=== PATIENT | female | born 1990 | race Caucasian/White ===

== ENCOUNTER 2018-09-15 21:26 | Emergency (ER) | payer BC, SELFPAY ==
[2018-09-15 21:28] VITALS: BP 122/77; PULSE 81; RESP 18; TEMP 36.7; O2SAT 96; BMI 24.2
--- NOTE | 2018-09-15 22:07 | ED.DCSUM_ITS ---
- ER Visit Summary Date of Service: 09/15/18 Chief Complaint: Cat scratch to History of Present Illness: The patient is a 28 F who is otherwise healthy presents to the emergency department after her cat scratched her on her right eyelid. Patient was contacts. States the cat got scared and scratched her face quickly. She is to close her eyes, and was scratched in her eyelid. She denies any visual change. She is unsure of her last tetanus shot. Patient is otherwise healthy. Physical Examination: Exam is relatively unremarkable. The patient is a 2 cm partial-thickness laceration in the right outer eyelid. It does not involve the tarsal plate. It does not gap open. It is well approximated. Pupils equal round reactive. There is no evidence of other trauma. Test Results: [] Emergency Department Course and Treatment: Patient's tetanus was updated. Slit- lamp examination was performed. There was no evidence of corneal abrasion or ulceration. Her wound is partial-thickness and is well approximated. I do feel that this will heal very well by secondary intention. I do have concern that if I did close it, there is a high risk of infection as this was a cat scratch. I explained this to the patient she is comfortable with this plan of care. She will be placed on prophylactic Augmentin for the next 5 days. She was counseled on local wound care and reasons to return. She will be discharged home. Treatment Plan: [] Disposition: Discharge Impression: 1. Cat scratch right eyelid This note was generated with [employer] dictation software. It may contain incorrect words, spelling, and punctuation that were not noted in review of the chart prior to signing ED Disposition - Plan for ED Patient: Instructions: Cat Bite Prescriptions: Amox/Clavulanate Tablet [Augmentin Tablet] 875 mg PO Q12H #10 tab Prescription Printed Fluconazole [Diflucan] 150 mg PO X1 #1 tab Prescription Printed Referrals: NOT,DEFINED [Primary Care Provider] -
[2018-09-15] MEDS: Amox/Clavulanate 875 MG Tablet PO (22:09)
[2018-09-15] MEDS: Diphth,Pertuss(Acell),Tet Vac 0.5 ML Vial IM (22:10)
[2018-09-15 22:39] VITALS: RESP 16
== END 2018-09-15 22:39 | disposition home or self-care (01) ==
LOC: ED 22:34
PROVIDERS: Emergency Provider Emergency Medicine
DX: S00.211A Abrasion of right eyelid and periocular area, initial encounter (principal); W55.03XA Scratched by cat, initial encounter; Y93.9 Activity, unspecified; Y92.9 Unspecified place or not applicable
CPT/HCPCS: 90715; 99282; A4216

== ENCOUNTER → 2018-11-25 | Outpatient (CLI) | payer BC, SELFPAY ==
[2018-11-30 12:24] LABS: HPV Reflexed? NOT INDICATED
== END | disposition home or self-care (01) ==
LOC: LABSPEC 15:49
PROVIDERS: Visit Provider Obstetrics & Gynecology
DX: Z12.4 Encounter for screening for malignant neoplasm of cervix (principal)
CPT/HCPCS: 87624; 88175; G0145

== ENCOUNTER 2019-09-28 10:32 | Outpatient (CLI) | payer SELFPAY ==
[2019-09-28 10:44] VITALS: BP 123/58; PULSE 81; TEMP 37.2
[2019-09-28 11:01] VITALS: BMI 28.5
--- NOTE | 2019-09-28 14:05 | OB.TRI.HP_ITS ---
- Problem List (1) tachycardia Status: Acute History of Present Illness Date of Service: 09/28/19 Was patient seen by the physician?: Yes Reason For Visit: TACHYCARDIA Date of Service: 09/28/19 Final COLIN: 11/09/19 Final COLIN Source: US <20 weeks Gestational age: 34 Weeks and 0 Days History of Present Illness: tachycardia in OB office today Allergies ethinyl estradiol [From Seasonale (91)] Allergy (Verified 09/15/18 21:30) Other levonorgestrel [From Seasonale (91)] Allergy (Verified 09/15/18 21:30) Other Review of Systems Constitutional: Denies: Chills, Fever, Weight Change HEENT: Denies: Head Aches, Sinus Congestion, Sinus Drainage Cardiovascular: Denies: Chest Pain, Palpitations Respiratory: Denies: Cough, Shortness of breath at rest, Sputum production Gastrointestinal: Denies: Abdominal Pain, Nausea, Vomiting Genitourinary: Denies: Dysuria Musculoskeletal: Denies: Joint Pain, Joint Tenderness Skin: Denies: Rash, Wounds Neurological: Denies: Numbness, Tingling, Focal weakness Psychiatric: Denies: Anxiety, Depression, Homicidal Ideations, Suicidal Ideations Hematologic/ Lymphatic: Denies: Easy Bruising, Easy Bleeding Physical Exam Vitals: Vital Signs Temp Pulse BP 99.0 F 81 123/58 H 09/28/19 10:44 09/28/19 10:44 09/28/19 10:44 General: Alert, Oriented x3, No apparent distress HEENT: Atraumatic, Normocephalic. Negative for: Thyromegaly, Lymphadenopathy Cardiovascular: Regular rate, Regular Rhythm Lungs: Clear to auscultation Abdomen: Bowel Sounds Present, Gravid Neurological: Deep Tendon Reflexes 2+/4 and Symmetrical, Neuro grossly intact INSTRUMENTAL MUSICIAN: Normal external genitalia. Negative for: Vulvar lesions NST - FHR Rate Baby A Baseline: 135 Variability:: Moderate Accelerations:: 15 x 15 Decelerations:: None NST Reactive:: Yes FHR Category:: Category I Uterine Activity:: quiet Impression/Plan A/P: A/P: at 34 weeks gestation sent to triage for tachycardia in the OB office Denies Nicotine or drug use Admits to having a big cup of coffee right before her appointment today Over two hours of observation NST remains Category I with FHR baseline of 135, maximum 150s Educated on eliminating caffeine and affects on heart rate To follow up in OB office as scheduled
== END 2019-09-28 13:15 | disposition home or self-care (01) ==
LOC: WPOUT 10:32 → WP 10:33
PROVIDERS: Referring Provider Obstetrics & Gynecology; Visit Provider Obstetrics & Gynecology
DX: O36.8330 Maternal care for abnormalities of the fetal heart rate or rhythm, third trimester, not applicable or unspecified (principal); Z3A.34 34 weeks gestation of pregnancy
CPT/HCPCS: 59025; 59050; 99218; G0378

== ENCOUNTER 2019-11-11 22:47 | Inpatient (IN) | payer OTHER, SELFPAY ==
[2019-11-11 22:37] VITALS: BP 128/82; PULSE 90
[2019-11-11 22:40] VITALS: TEMP 36.9
[2019-11-11 22:55] VITALS: BMI 31.5
[2019-11-11] MEDS: Lactated Ringers 1,000 ML 50 ML IV (23:00)
[2019-11-11] MEDS: Lactated Ringers 500 ML 999 ML IV (23:21)
[2019-11-11 23:39] LABS: Absolute Lymphocyte Count 1.46 X10^3/uL (0.83-4.51); Absolute Neutrophil Count 15.7 X10^3/uL (2.0-7.7); Basophil# 0.06 X10^3/uL; Basophil% 0.3 % (0-1); Eosinophils% 1.1 % (0-5); Hematocrit 32.6 % (37-47); Hemoglobin 10.8 g/dL (12.0-15.0); Lymphocyte # 1.46 X10^3/ul (4.0); Lymphocyte % 7.7 % (19-41); Mean Corp Hgb Conc 33.1 g/dL (32-36); Mean Corpuscular Hgb 28.1 pg (27.0-32.0); Mean Corpuscular Volume 84.7 fL (81-99); Mean Platelet Vol. 12.3 fl (6.2-12.0); Monocyte# 1.18 X10^3/uL; Monocyte% 6.2 % (0-10); NRBC Flagged by Analyzer 0 % (0-5); Neutrophil # 15.66 X10^3/uL (2.7-7.7); Neutrophil % 82.8 % (47-70); Platelet Count 236 K/mm3 (150-450); RBC Distribution Width CV 13.9 % (11.6-14.6); RBC Distribution Width SD 42.1 fl (35.1-43.9); Red Blood Count 3.85 M/mm3 (4.2-5.4); White Blood Count 18.9 K/mm3 (4.4-11.0)
--- NOTE | 2019-11-11 23:55 | HP.PCM_ITS ---
- Problem List (1) 40 weeks gestation of Status: Acute History Date of Admission: 11/11/19 Final COLIN: 11/09/19 Final COLIN Source: US <20 weeks Gestational age: 40 Weeks and 3 Days History of this : This is a 29 year-old, G [2], P [0], at 40 weeks gestational age. Allergies ethinyl estradiol [From Seasonale ()] Allergy (Verified 09/15/18 21:30) Other levonorgestrel [From Seasonale (91)] Allergy (Verified 09/15/18 21:30) Other Home Medications: Home Medications Tablet 09/28/19 Vit,Calc76/Iron/Folic [Pnv 29-1 Tablet] 1 ea PO 11/11/19 Smoking Status: Never smoker Alcohol: None Number of Fetus(es): 1 NST - FHR Rate Baby A Baseline: 140 Variability:: Moderate Accelerations:: 15 x 15 Decelerations:: None NST Reactive:: Yes FHR Category:: Category I Uterine Activity:: Q2-5m History Past Pregnancies: Past Pregnancies Delivery Date Name GA/ Weeks Outcome Route Wt Infant Sex Labor Length Anesthesia Delivery Location Provider FOB 04/04 10 TAB Labs: Mom's Problem List Problem Status Onset Code 40 weeks gestation of Acute [id number].[id number] Mom's Labs & Results 11/11/19 11/11/19 23:00 23:00 WBC 18.9 H RBC 3.85 L Hgb 10.8 L Hct 32.6 L MCV 84.7 MCH 28.1 MCHC 33.1 RDW Std Deviation 42.1 RDW Coeff of Simi 13.9 Plt Count 236 MPV 12.3 H Immature Gran % (Auto) 1.900 H Neut % (Auto) 82.8 H Lymph % (Auto) 7.7 L [place] % (Auto) 6.2 Eos % (Auto) 1.1 Baso % (Auto) 0.3 Absolute Neuts (auto) 15.7 H Absolute Lymphs (auto) 1.46 Nucleated RBC % 0 Blood Type A POSITIVE Antibody Screen NEGATIVE Course Did the patient receive Yes care? Labs Blood Type: A RH: POSITIVE RPR/VDRL/Syphilis Nonreactive Rubella status Immune HbSAg Negative Date Done: 04/04/19 Chlamydia Negative Gonorrhea Negative HIV/AIDS Non-Reactive Group B Strep: Negative Current Obstetrical History Gestational Diabetes No Incompetent Cervix No Infertility No IUGR No Macrosomia No Hypertension/Pre-eclampsia No Placenta Previa/Abruption No PTL/PROM No Uterine anomaly No Oligohydramnios No Polyhydramnios Yes Multiple gestation No Past Medical History Asthma No Diabetes No Hypertension No Heart disease No Mitral valve prolapse No Neurologic/Seizure disorder/ No Migraines Kidney disease No Liver disease No Varicosities Yes Clotting disorders/Hx of DVT No Thyroid Dysfunction No Other medical diseases No Psychiatric disorders No Major trauma No Abnormal PAP smear Yes: 1 abnormal, normal since Sleep apnea No Mammogram in the last 2 years No Social History Marital Status: Alleged father Neno Hercules Hx Smoking No Smoking Status Never smoker Expected Infant Delivery Method: Spontaneous Vaginal Number of Visits: 15 Review of Systems Constitutional: Denies: Chills, Fever, Weight Change HEENT: Denies: Head Aches, Sinus Congestion, Sinus Drainage Cardiovascular: Denies: Chest Pain, Palpitations Respiratory: Denies: Cough, Shortness of breath at rest, Sputum production Gastrointestinal: Denies: Abdominal Pain, Nausea, Vomiting Genitourinary: Denies: Dysuria Musculoskeletal: Denies: Joint Pain, Joint Tenderness Skin: Denies: Rash, Wounds Neurological: Denies: Numbness, Tingling, Focal weakness Psychiatric: Denies: Anxiety, Depression, Homicidal Ideations, Suicidal Ideations Hematologic/ Lymphatic: Denies: Easy Bruising, Easy Bleeding Physical Exam Vitals: Vital Signs Temp Pulse BP Pulse Ox 98.8 F 100 120/72 100 11/12/19 08:07 11/12/19 09:00 11/12/19 09:00 11/12/19 08:07 General: Alert, Oriented x3, No apparent distress HEENT: Atraumatic, Normocephalic. Negative for: Thyromegaly, Lymphadenopathy Cardiovascular: Regular rate, Regular Rhythm Lungs: Clear to auscultation Abdomen: Bowel Sounds Present, Gravid Neurological: Deep Tendon Reflexes 2+/4 and Symmetrical, Neuro grossly intact HORSERADISH GRINDER: Normal external genitalia. Negative for: Vulvar lesions Estimated gestational size: Appropriate for gestational size Presentation: Cephalic Cervix Dilation (cm): 4 - per RN Station: -1 Effacement (%): 90 Assessment/Plan All Active Problems tachycardia (Acute) 40 weeks gestation of (Acute) A/P: This is a 29 year-old, G [2], P [0], at 40 weeks gestational age. SVE /-1 UC Q2-5m NST Category I Admit for active labor Unsure of pain management plan
[2019-11-11 23:58] VITALS: PULSE 194; O2SAT 81
[2019-11-12] VITALS (62 sets, daily range): BP systolic 97–138; BP diastolic 52–86; PULSE 72–108; RESP 12–16; TEMP 36.2–37.4; O2SAT 94–100
[2019-11-12] MEDS: fentaNYL-bupivacaine (epidural) 100 ML BAG EPIDURAL ×2 (00:20→06:28)
[2019-11-12] MEDS: Lactated Ringers 1,000 ML 200 ML IV ×2 (02:32→08:35)
--- NOTE | 2019-11-12 06:10 | PN.OBGYN_ITS ---
Patient Problems: Active and Suspected Problems 40 weeks gestation of (Acute) Subjective: Rating contractions a 3/10. Objective: VSS. SVE 7/90/0. FHR baseline 130, +accels, -decels, moderate variability. UC Q2-5m - Physical Exam Vitals/I&O's: Vital Signs Temp Pulse BP Pulse Ox 98.8 F 100 136/78 H 100 11/12/19 08:07 11/12/19 09:49 11/12/19 09:49 11/12/19 08:07 Weight: 88.6 kg Body Mass Index (BMI) 31.5 Intake and Output for Last 24 Hours 11/10/19 11/11/19 11/12/19 23:59 23:59 23:59 Intake Total 500 / 500 2500.00 / 2500.00 Output Total 1400 / 1400 Balance 500 / 500 1100.00 / 1100.00 General: Alert, Oriented x3, Cooperative HEENT: Atraumatic, PERRLA, EOMI, Normocephalic Neck: Supple, No JVD, Negative Carotid Bruits Lungs: Clear to auscultation, Normal air movement Cardiovascular: Regular rate, No murmurs Abdomen: Bowel Sounds Present, Soft, Non Tender Extremities: No edema, Capillary Refill Less than 3 Seconds Skin: No rashes, No breakdown Musculoskeletal: No Tenderness to Palpation of Joints or Extremities Neurological: Cranial nerves II-XII grossly intact Psych/Mental Status: Normal Affect, Appropriate Laboratory Results 11/11/19 23:00: WBC 18.9 H, RBC 3.85 L, Hgb 10.8 L, Hct 32.6 L, MCV 84.7, MCH 28.1, MCHC 33.1, RDW Std Deviation 42.1, RDW Coeff of Simi 13.9, Plt Count 236, MPV 12.3 H, Immature Gran % (Auto) 1.900 H, Neut % (Auto) 82.8 H, Lymph % (Auto) 7.7 L, [place] % (Auto) 6.2, Eos % (Auto) 1.1, Baso % (Auto) 0.3, Absolute Neuts (auto) 15.7 H, Absolute Lymphs (auto) 1.46, Nucleated RBC % 0 11/11/19 23:00: Blood Type A POSITIVE, Antibody Screen NEGATIVE Current Medications Acetaminophen (Tylenol) 325 - 650 mg PO Q4H PRN PRN PRN Reason: Pain Score 1-3/10 Al Hydroxide/Mg Hydroxide (Mylanta Ii) 15 - 30 ml PO Q4H PRN PRN PRN Reason: INDIGESTION Citric Acid/Sodium Citrate (Bicitra) 30 ml PO X1 PRN PRN Reason: Section Ephedrine Sulfate () 10 mg IV Q10M PRN PRN Reason: hypotension Ephedrine Sulfate () 10 mg IM Q30M PRN PRN Reason: hypotension Fentanyl Citrate (Sublimaze (100mcg Ampule)) 25 - 50 mcg IV Q2H PRN PRN PRN Reason: Pain Score 4-10/10 Fentanyl/Bupivacaine/Sodium Chlor () 0 ml EPIDURAL UD LASHAUN; Protocol Last Admin: 11/12/19 06:28 Dose: 100 ml Documented by: Lactated Ringer's () 500 mls @ 999 mls/hr IV .Q31M PRN PRN Reason: Epidural Lactated Ringer's () 500 mls @ 999 mls/hr IV .Q31M PRN PRN Reason: Corrective Measures Last Infusion: 11/12/19 07:11 Dose: Infused Documented by: Lactated Ringer's () 1,000 mls @ 50 mls/hr IV .Q20H LASHAUN Last Admin: 11/12/19 08:35 Dose: 200 mls/hr Documented by: Naloxone HCl 4 mg/ Dextrose 504 mls @ 0 mls/hr IV .Q0M PRN; Protocol PRN Reason: To maintain Resp. rate >10 Nalbuphine HCl (Nubain) 5 mg IV Q3H PRN PRN PRN Reason: ITCHING Naloxone HCl (Narcan) 0.02 mg IV Q1M PRN PRN Reason: RR< 10 AND PT UNRESPONSIVE Ondansetron HCl (Zofran) 4 mg IV Q4H PRN PRN PRN Reason: NAUSEA Prochlorperazine Edisylate (Compazine Iv) 10 mg IV Q6H PRN PRN PRN Reason: NAUSEA Sodium Chloride () 10 - 40 ml IV X1 PRN PRN Reason: SALINE FLUSH Medical Necessity - Tobacco Use Smoking Status: Never smoker Assessment/Plan All Active Problems tachycardia (Acute) 40 weeks gestation of (Acute) A/P: SVE 7/90/0 bulging bag of fluid Planning to get epidural for pain management then okay with AROM NST Category I UC Q2-5m Expect
[2019-11-12] MEDS: Lactated Ringers 500 ML 999 ML IV (06:31)
--- NOTE | 2019-11-12 09:15 | PCM.PN.OB ---
Patient Problems: Active and Suspected Problems 40 weeks gestation of (Acute) Subjective: Comfortable with epidural and denies pain. Objective: VSS. SVE 9.5/95/0 with bulging bag. UC Q2-4m. FHR baseline 140, +accels, -decels, moderate variability. - Physical Exam Vitals/I&O's: Vital Signs Temp Pulse BP Pulse Ox 98.8 F 100 136/78 H 100 11/12/19 08:07 11/12/19 09:49 11/12/19 09:49 11/12/19 08:07 Weight: 88.6 kg Body Mass Index (BMI) 31.5 Intake and Output for Last 24 Hours 11/10/19 11/11/19 11/12/19 23:59 23:59 23:59 Intake Total 500 / 500 2500.00 / 2500.00 Output Total 1400 / 1400 Balance 500 / 500 1100.00 / 1100.00 General: Alert, Oriented x3, Cooperative HEENT: Atraumatic, PERRLA, EOMI, Normocephalic Neck: Supple, No JVD, Negative Carotid Bruits Lungs: Clear to auscultation, Normal air movement Cardiovascular: Regular rate, No murmurs Abdomen: Bowel Sounds Present, Soft, Non Tender Extremities: No edema, Capillary Refill Less than 3 Seconds Skin: No rashes, No breakdown Musculoskeletal: No Tenderness to Palpation of Joints or Extremities Neurological: Cranial nerves II-XII grossly intact Psych/Mental Status: Normal Affect, Appropriate Laboratory Results 11/11/19 23:00: WBC 18.9 H, RBC 3.85 L, Hgb 10.8 L, Hct 32.6 L, MCV 84.7, MCH 28.1, MCHC 33.1, RDW Std Deviation 42.1, RDW Coeff of Simi 13.9, Plt Count 236, MPV 12.3 H, Immature Gran % (Auto) 1.900 H, Neut % (Auto) 82.8 H, Lymph % (Auto) 7.7 L, [place] % (Auto) 6.2, Eos % (Auto) 1.1, Baso % (Auto) 0.3, Absolute Neuts (auto) 15.7 H, Absolute Lymphs (auto) 1.46, Nucleated RBC % 0 11/11/19 23:00: Blood Type A POSITIVE, Antibody Screen NEGATIVE Current Medications Acetaminophen (Tylenol) 325 - 650 mg PO Q4H PRN PRN PRN Reason: Pain Score 1-3/10 Al Hydroxide/Mg Hydroxide (Mylanta Ii) 15 - 30 ml PO Q4H PRN PRN PRN Reason: INDIGESTION Citric Acid/Sodium Citrate (Bicitra) 30 ml PO X1 PRN PRN Reason: Section Ephedrine Sulfate () 10 mg IV Q10M PRN PRN Reason: hypotension Ephedrine Sulfate () 10 mg IM Q30M PRN PRN Reason: hypotension Fentanyl Citrate (Sublimaze (100mcg Ampule)) 25 - 50 mcg IV Q2H PRN PRN PRN Reason: Pain Score 4-10/10 Fentanyl/Bupivacaine/Sodium Chlor () 0 ml EPIDURAL UD LASHAUN; Protocol Last Admin: 11/12/19 06:28 Dose: 100 ml Documented by: Lactated Ringer's () 500 mls @ 999 mls/hr IV .Q31M PRN PRN Reason: Epidural Lactated Ringer's () 500 mls @ 999 mls/hr IV .Q31M PRN PRN Reason: Corrective Measures Last Infusion: 11/12/19 07:11 Dose: Infused Documented by: Lactated Ringer's () 1,000 mls @ 50 mls/hr IV .Q20H LASHAUN Last Admin: 11/12/19 08:35 Dose: 200 mls/hr Documented by: Naloxone HCl 4 mg/ Dextrose 504 mls @ 0 mls/hr IV .Q0M PRN; Protocol PRN Reason: To maintain Resp. rate >10 Nalbuphine HCl (Nubain) 5 mg IV Q3H PRN PRN PRN Reason: ITCHING Naloxone HCl (Narcan) 0.02 mg IV Q1M PRN PRN Reason: RR< 10 AND PT UNRESPONSIVE Ondansetron HCl (Zofran) 4 mg IV Q4H PRN PRN PRN Reason: NAUSEA Prochlorperazine Edisylate (Compazine Iv) 10 mg IV Q6H PRN PRN PRN Reason: NAUSEA Sodium Chloride () 10 - 40 ml IV X1 PRN PRN Reason: SALINE FLUSH Medical Necessity - Tobacco Use Smoking Status: Never smoker Assessment/Plan All Active Problems tachycardia (Acute) 40 weeks gestation of (Acute) A/P: SVE 9.5/95/0 AROM with clear fluid NST Category I UC Q2-[address] for pain management Expect
--- NOTE | 2019-11-12 11:59 | PCM.OPRPT ---
Problem List (1) 40 weeks gestation of Status: Acute Vaginal Delivery Maternal Presentation: Active Labor Amniotic Membrane Rupture Type: Artificial Amniotic Fluid Description: Clear Final COLIN: 11/09/19 Gestational age: 40 Weeks and 3 Days Date of Procedure: 11/12/19 Pre-Operative Diagnosis: Labor Post-Operative Diagnosis: S/P Surgery/ Procedure Performed: Spontaneous Vaginal Delivery Anesthesiologist: Sanjana Hayden Type of Anesthesia: Epidural Description of Procedure: Patient was FD at +3 station with spontaneous urge to push. She pushed well over two hours to deliver head in OA to EVARISTO followed spontaneously by body. The female infant was placed on the maternal abdomen and further attended to by nursery personnel. The cord was doubly clamped and cut by FOB under CNM supervision at approximately 4 minutes of life. 2nd degree perineal laceration noted and repaired under epidural anesthesia and 1% local Lidocaine with a 3.0 rapide/double and a 1st degree right labial laceration repaired with a 3.0 chromic. With gentle traction the placenta delivered, appearing intact with a three vessel cord. IV Pitocin started per protocol. Apgars 8/9. EBL 300. Sponge and needle counts correct x 2. Presentation: Vertex, EVARISTO Placental Delivery Description: Spontaneous Placenta Disposition: [facility] Cord Vessel Description: 3 Vessels Cord Entanglement: None Drain: Nagel to straight drain Estimated Blood Loss: 300 A gender: Female (1 minute): 8 (5 minute): 9 Episiotomy Description: None Laceration: 1st degree - right labia majora, 2nd degree - perineal Medications given after delivery: IV Pitocin
[2019-11-12] MEDS: Oxytocin 30 units/NS 500 ml 30 UNITS/500 ML IV.SOLN 334 UNITS IV (12:13)
--- NOTE | 2019-11-12 13:16 | DCINST_ITS ---
Discharge Diet: No Restrictions Discharge Activity: Return to Normal Activity, May not drive while taking narcotic pain medications., May Shower May resume sexual activity in: 4-6 weeks Additional Activity Instructions:: Nothing in the vagina for 4-6 weeks. You may return to work/school in 6 weeks. Call your doctor if your incision/area has: Continuous Slow Oozing, Sudden Increased Bleeding, Increased Pain/ Swelling, Increased Redness, Foul Smelling Discharge Additional Instructions: If you experience any of the following, contact your healthcare provider. * Bleeding that soaks a pad every hour for 2 hours * Fever 100.4 or higher * Unrelieved incision or abdominal pain * Swelling, redness, discharge or bleeding from your incision or episiotomy site * Your incision begins to separate * Problems urinating (including inability to urinate or burning while urinating). * Visual changes * Severe headache * Flu-like symptoms * Pain or redness in one of both of your breasts * Pain, warmth, tenderness or swelling in your legs, especially the calf area * Frequent nausea and vomiting * Symptoms of depression or anxiety If you experience any of the following, call 911 or go to the nearest Emergency Room. * Chest pain * Problems breathing * Seizure activity * Partial or complete paralysis of a body part, slurred speech, weakness or drooping of the face, or a sudden inability to walk or hold your balance Allergies/Adverse Reactions: Allergies ethinyl estradiol [From Seasonale (91)] Allergy (Verified 09/15/18 21:30) Other levonorgestrel [From Seasonale (91)] Allergy (Verified 09/15/18 21:30) Other Medications to take at Discharge Tablet 09/28/19 Vit,Calc76/Iron/Folic [Pnv 29-1 Tablet] 1 ea PO 11/11/19 Please Follow Up With: Angi Moran CNM When: Call to make an appointment with your CNM in 2 weeks for a telehealth visit as well as a 6 week routine visit. Primary Care Physician: Care Physician,No Primary [Primary Care Provider] - Test Results: Test results from this visit will be discussed in further detail at your follow- up appointment, if applicable.
[2019-11-12] MEDS: Ibuprofen 600 MG Tablet PO ×2 (17:09→22:43)
--- NOTE | 2019-11-12 17:55 | NURSING ---
1710 pt up walking around room independently
[2019-11-13] MEDS: Ibuprofen 600 MG Tablet PO ×2 (04:33→11:06)
[2019-11-13 04:42] VITALS: BP 106/66; PULSE 66; RESP 12; TEMP 36.3
[2019-11-13] MEDS: Acetaminophen 500 MG Tablet 1000 MG PO (07:42)
[2019-11-13 07:43] VITALS: BP 105/62; PULSE 71; RESP 16; TEMP 36.9
--- NOTE | 2019-11-13 08:40 | PN.OBGYN_ITS ---
Patient Problems: Active and Suspected Problems 40 weeks gestation of (Acute) Subjective: Feeling well today. Denies heavy bleeding or pain. One laceration [place] while she urinates. is going well. Ambulating in room, tolerating a regular diet, urinating well and passing flatus. Objective: VSS. Fundus is firm, midline, u/1. Lochia rubra moderate. - Physical Exam Vitals/I&O's: Vital Signs Temp Pulse Resp BP Pulse Ox 97.4 F L 66 12 106/66 94 11/13/19 04:42 11/13/19 04:42 11/13/19 04:42 11/13/19 04:42 11/12/19 12:15 Oxygen Delivery Method Room Air Weight: 88.6 kg Body Mass Index (BMI) 31.5 Intake and Output for Last 24 Hours 11/11/19 11/12/19 11/13/19 23:59 23:59 23:59 Intake Total 500 / 500 4000.00 / 4000.00 Output Total 4050 / 4050 Balance 500 / 500 -50.00 / -50.00 General: Alert, Oriented x3, Cooperative HEENT: Atraumatic, PERRLA, EOMI, Normocephalic Neck: Supple, No JVD, Negative Carotid Bruits Lungs: Clear to auscultation, Normal air movement Cardiovascular: Regular rate, No murmurs Abdomen: Bowel Sounds Present, Soft, Non Tender Extremities: No edema, Capillary Refill Less than 3 Seconds Skin: No rashes, No breakdown Musculoskeletal: No Tenderness to Palpation of Joints or Extremities Neurological: Cranial nerves II-XII grossly intact Psych/Mental Status: Normal Affect, Appropriate Current Medications Acetaminophen (Tylenol) 1,000 mg PO Q8H PRN PRN PRN Reason: Pain Score 1-3/10 Bisacodyl (Dulcolax) 10 mg RECTAL UD PRN PRN Reason: If no BM Hydrocortisone (Hytone) 1 applic TOPICAL TID PRN PRN; Protocol PRN Reason: Discomfort Ibuprofen (Motrin) 600 mg PO Q6H LASHAUN Last Admin: 11/13/19 04:33 Dose: 600 mg Documented by: Methylergonovine Maleate (Methergine) 0.2 mg IM X1 PRN PRN Reason: Excess bleeding/uterine atony Ondansetron HCl (Zofran) 4 mg IV Q4H PRN PRN PRN Reason: Nausea Senna/Docusate Sodium (Senokot-S, Estela-Colace) 1 - 2 tablet PO DAILY PRN PRN PRN Reason: Constipation Simethicone (Mylicon) 80 mg PO PCHS PRN PRN Reason: Indigestion/Stomach pain Sodium Chloride () 5 - 15 ml IV UD PRN PRN Reason: SALINE FLUSH Medical Necessity - Tobacco Use Smoking Status: Never smoker Assessment/Plan All Active Problems tachycardia (Acute) 40 weeks gestation of (Acute) A/P: S/P day #1 mother Normal involution and lochia Dyad stable Would like to discharge home today Education on , lochia, signs of PPD and when to call Will f/u with radio news writer in 2 weeks for a telehealth visit and in 6 weeks for routine PP visit
== END 2019-11-13 15:00 | disposition home or self-care (01) | DRG 807 ==
LOC: WPOUT 22:48 → WP 11-12 13:00
PROVIDERS: Admitting Provider Obstetrics & Gynecology; Visit Provider Obstetrics & Gynecology
DX: O76 Abnormality in fetal heart rate and rhythm complicating labor and delivery (principal); Z37.0 Single live birth; O70.1 Second degree perineal laceration during delivery; Z3A.40 40 weeks gestation of pregnancy
CPT/HCPCS: 59025; 59050; 85025; 86850; 86900; 86901; 99218; J7120; G0378

== ENCOUNTER → 2021-01-16 10:08 | Outpatient (CLI) | payer BC, SELFPAY ==
[2021-01-16 10:23] LABS: Absolute Lymphocyte Count 1.67 X10^3/uL (0.83-4.51); Absolute Neutrophil Count 5.7 X10^3/uL (2.0-7.7); Basophil# 0.04 X10^3/uL; Basophil% 0.5 % (0-1); Eosinophil# 0.13 X10^3/uL; Eosinophils% 1.6 % (0-5); Hemoglobin 13.5 g/dL (12.0-15.0); Lymphocyte # 1.67 X10^3/ul (0.83-4.51); Lymphocyte % 20.4 % (19-41); Mean Corp Hgb Conc 33.8 g/dL (32-36); Mean Corpuscular Hgb 27.8 pg (27.0-32.0); Mean Corpuscular Volume 82.5 fL (81-99); Mean Platelet Vol. 10.7 fl (6.2-12.0); Monocyte# 0.64 X10^3/uL; Monocyte% 7.8 % (0-10); NRBC Flagged by Analyzer 0 % (0-5); Neutrophil # 5.66 X10^3/uL (2.7-7.7); Neutrophil % 69.2 % (47-70); Platelet Count 286 K/mm3 (150-450); RBC Distribution Width CV 12.6 % (11.6-14.6); RBC Distribution Width SD 38.3 fl (35.1-43.9); Red Blood Count 4.85 M/mm3 (4.2-5.4); White Blood Count 8.2 K/mm3 (4.4-11.0)
[2021-01-16 11:42] LABS: HIV - WCH Non-Reactive (Nonreactive); Hepatitis B Surface Antigen Non-Reactive (Nonreactive); Hepatitis C Antibody Non-Reactive (Nonreactive); Rubella IgG Reactive (Nonreactive); Syphilis Antibodies Non-reactive
[2021-01-16 14:21] LABS: Amphetamine Urine VISTA NEGATIVE (<1000 ng/mL); Barbiturate Urine VISTA NEGATIVE (< 200 ng/mL); Benzodiazepine Urine VISTA NEGATIVE (< 200 ng/mL); Cocaine Urine VISTA NEGATIVE (< 300 ng/mL); Ecstacy Urine VISTA NEGATIVE (< 500 ng/mL); Methadone Urine VISTA NEGATIVE (< 300 ng/mL); PCP Urine VISTA NEGATIVE (< 25 ng/mL); THC Urine VISTA NEGATIVE (< 50 ng/mL); Vista UDS pH Range 7
[2021-01-18 09:08] LABS: Chlamydia By Nucleic Acid AMP Negative (Negative)
[2021-01-18 13:53] LABS: Gonococcus By Nucleic Acid AMP Negative (Negative)
[2021-01-20 15:22] LABS: HPV Reflexed? NOT INDICATED
== END ==
PROVIDERS: Referring Provider Obstetrics & Gynecology; Visit Provider Obstetrics & Gynecology
DX: Z34.90 Encounter for supervision of normal pregnancy, unspecified, unspecified trimester (principal)
CPT/HCPCS: 36415; 80307; 85025; 86703; 86762; 86780; 86803; 86850; 86900; 86901; 87086; 87088; 87340; 87491; 87591; 88175; G0145

== ENCOUNTER 2021-04-03 13:14 | Outpatient (CLI) | payer BC, SELFPAY ==
--- NOTE | 2021-04-03 13:25 | US_ITS ---
STUDY: SECOND AND THIRD TRIMESTER OBSTETRICAL ULTRASOUND REASON FOR EXAM: Female, 30 years old anatomy LMP: 11/13/2020. TECHNIQUE: Transabdominal and Transvaginal TECHNICAL QUALITY: Adequate. PRIOR ULTRASOUND: None. FINDINGS: There is a single intrauterine fetus. The fetus is in a breech presentation. There is demonstrated cardiac activity with a heart rate of 148 bpm. There is a normal amniotic fluid volume. The largest amniotic fluid pocket measures 5.4 cm. The amniotic fluid index (ISAIAH) is within normal limits. The placenta is anterior and low lying but not previa in location. The tip of the placenta is at 1.2 cm from the cervical os. There are Grade 0 placental changes. The cervix measures 6.3 cm in length. The adnexal regions are not visualized. BIOMETRY: BPD: 4.73 cm: 20 weeks, 2 days HC: 17.57 cm: 20 weeks, 0 days AC: 15.05 cm: 20 weeks, 2 days FL: 3.18 cm: 19 weeks, 6 days age by current US: 20 weeks, 0 days. COLIN by current US: 08/21/2021. Estimated weight: 336 grams, +/- 50 grams, 45.6 %. Age by LMP: 20 weeks, 1 days. COLIN by LMP: 08/20/2021. ANATOMY: Gender: Male Cranium: Normal lateral ventricles. Normal choroid plexus. Normal cerebellum. Normal cisterna magna. Normal face, nose and lips. Chest: Normal 4-chamber heart. Abdomen/Pelvis: Normal diaphragm. Normal stomach. Normal abdominal wall. Normal cord insertion. Normal 3 vessel cord. Normal kidneys. Normal bladder. Spine: Normal cervical spine. Normal thoracic spine. Normal lumbar spine. Normal sacrum. Extremities: Normal bilateral upper extremities. Normal bilateral lower extremities. US/OB Anatomy Scan IMPRESSION: Single live uterine gestation with a mean gestational age of 20 weeks. Electronically Signed: London Kearns MD at 15:30 EST , Service support ,
== END 2021-04-03 23:59 | disposition short-term general hospital (02) ==
LOC: OPUS 13:14
PROVIDERS: Visit Provider Obstetrics & Gynecology
DX: Z34.80 Encounter for supervision of other normal pregnancy, unspecified trimester (principal)
CPT/HCPCS: 76805; 76817

== ENCOUNTER 2021-05-20 10:29 | Outpatient (CLI) | payer BC, SELFPAY ==
[2021-05-20 11:19] LABS: Absolute Lymphocyte Count 1.09 X10^3/uL (0.83-4.51); Absolute Neutrophil Count 5.6 X10^3/uL (2.0-7.7); Basophil# 0.02 X10^3/uL; Basophil% 0.3 % (0-1); Eosinophil# 0.13 X10^3/uL; Eosinophils% 1.7 % (0-5); Hematocrit 34.6 % (37-47); Hemoglobin 11.6 g/dL (12.0-15.0); Lymphocyte # 1.09 X10^3/ul (0.83-4.51); Lymphocyte % 13.9 % (19-41); Mean Corp Hgb Conc 33.5 g/dL (32-36); Mean Corpuscular Hgb 28.3 pg (27.0-32.0); Mean Corpuscular Volume 84.4 fL (81-99); Mean Platelet Vol. 10.9 fl (6.2-12.0); Monocyte# 0.84 X10^3/uL; Monocyte% 10.7 % (0-10); NRBC Flagged by Analyzer 0 % (0-5); Neutrophil # 5.61 X10^3/uL (2.7-7.7); Neutrophil % 71.4 % (47-70); Platelet Count 277 K/mm3 (150-450); RBC Distribution Width CV 13.4 % (11.6-14.6); RBC Distribution Width SD 41.5 fl (35.1-43.9); White Blood Count 7.9 K/mm3 (4.4-11.0)
[2021-05-20 11:43] LABS: Glucose Challenge Gest 1H 50g 92 mg/dL (70-140)
== END 2021-05-20 23:59 | disposition home or self-care (01) ==
LOC: LAB 10:32
PROVIDERS: PCP Pediatrics; Referring Provider Obstetrics & Gynecology; Visit Provider Obstetrics & Gynecology
DX: Z34.80 Encounter for supervision of other normal pregnancy, unspecified trimester (principal)
CPT/HCPCS: 36415; 82950; 85025

== ENCOUNTER 2021-06-05 13:27 | Outpatient (CLI) | payer BC, SELFPAY ==
--- NOTE | 2021-06-05 13:30 | US_ITS ---
STUDY: SECOND AND THIRD TRIMESTER OBSTETRICAL ULTRASOUND REASON FOR EXAM: Female, 31 years old growth, placenta check @ 28 weeks LMP: 11/13/2020. TECHNIQUE: Transabdominal TECHNICAL QUALITY: Adequate. PRIOR ULTRASOUND: Comparison is made with prior study dated 2021. FINDINGS: There is a single intrauterine fetus. The fetus is in a breech presentation. There is demonstrated cardiac activity with a heart rate of 143 bpm. There is a normal amniotic fluid volume. The largest amniotic fluid pocket measures 6.1 cm. The amniotic fluid index (ISAIAH) is 18.1 cm. The placenta is anterior in location and is not low lying. There are Grade 1 placental changes. The cervix measures 4.7 cm in length. The adnexal regions are not visualized. BIOMETRY: BPD: 7.7 cm: 30 weeks, 6 days HC: 27.8 cm: 30 weeks, 2 days AC: 26.3 cm: 30 weeks, 2 days FL: 5.4 cm: 28 weeks, 4 days CI: 81% FL/BPD: 70% FL/HC: FL/AC: 21% HC/AC: 1.06 age by current US: 29 weeks, 5 days. COLIN by current US: 08/16/2021. Estimated weight: 1490 grams, +/- 223 grams, 68 %. age by prior US: 29 weeks, 0 days. COLIN by prior US: 08/21/2021. Age by LMP: 29 weeks, 1 days. COLIN by LMP: 08/20/2021. US/OB Limited With Biometrics IMPRESSION: Single live uterine gestation with a mean gestational age of 29 weeks. The measurements obtained today fall within the normal expected range. Electronically Signed: London Kearns MD at 11:05 EST ,
== END 2021-06-05 23:59 | disposition home or self-care (01) ==
LOC: US 13:29
PROVIDERS: PCP Pediatrics; Referring Provider Nurse Practitioner Women's Health; Visit Provider Nurse Practitioner Women's Health
DX: O44.40 Low lying placenta NOS or without hemorrhage, unspecified trimester (principal); Z3A.00 Weeks of gestation of pregnancy not specified
CPT/HCPCS: 76816

== ENCOUNTER 2021-07-03 14:06 | Outpatient (CLI) | payer BC, SELFPAY ==
[2021-07-08 16:38] LABS: HSV 1 IgG < 0.91 index (0.00-0.90); HSV 2 IgG < 0.91 index (0.00-0.90)
== END 2021-07-03 23:59 | disposition home or self-care (01) ==
PROVIDERS: PCP Pediatrics; Referring Provider Obstetrics & Gynecology; Visit Provider Obstetrics & Gynecology
DX: N76.0 Acute vaginitis (principal)
CPT/HCPCS: 36415; 86695; 86696

== ENCOUNTER 2021-07-03 16:12 | Outpatient (CLI) | payer BC, SELFPAY | END 2021-07-03 23:59 | disposition home or self-care (01) | LOC: LABSPEC 16:13 | PROVIDERS: PCP Pediatrics; Referring Provider Obstetrics & Gynecology; Visit Provider Obstetrics & Gynecology | DX: N76.0 Acute vaginitis (principal) | CPT/HCPCS: 87070; 87205 ==

== ENCOUNTER → 2021-08-08 | Outpatient (CLI) | payer BC, SELFPAY | END | disposition home or self-care (01) | LOC: LABSPEC 13:31 | PROVIDERS: PCP Pediatrics; Visit Provider Obstetrics & Gynecology | DX: Z34.80 Encounter for supervision of other normal pregnancy, unspecified trimester (principal) | CPT/HCPCS: 87081 ==

== ENCOUNTER 2021-08-12 18:15 | Outpatient (CLI) | payer BC, SELFPAY ==
[2021-08-12 18:26] VITALS: BMI 32.1
[2021-08-12 18:28] VITALS: TEMP 37.1; O2SAT 98
[2021-08-12 18:31] VITALS: BP 115/63; PULSE 87
--- NOTE | 2021-08-12 18:44 | OB.TRI.PN_ITS ---
Progress Notes Date of Service: 08/12/21 Progress Note: Patient presents for triage evaluation secondary to abdominal trauma FHT: 130 Moderate variability reactive no decelerations category I tracing [place]: irregular Contractions Assessment and plan: abdominal trauma rh pos Reactive NST, s/p 4 hour smonitoring with reassuring maternal and status patient discharged to home to follow-up as scheduled. See problem list details for additional plan information. Charges/Coding Procedures Urinary/Genital 52xxx-59xxx: 21105-02 non-stress test Interp
[2021-08-12 21:46] VITALS: PULSE 87; O2SAT 97
[2021-08-12 21:48] VITALS: BP 123/69; PULSE 80
== END 2021-08-12 22:40 | disposition home or self-care (01) ==
LOC: WPOUT 18:19 → WP 18:27
PROVIDERS: Visit Provider Obstetrics & Gynecology
DX: O9A.219 Injury, poisoning and certain other consequences of external causes complicating pregnancy, unspecified trimester (principal); S39.91XA Unspecified injury of abdomen, initial encounter; X58.XXXA Exposure to other specified factors, initial encounter; Z3A.00 Weeks of gestation of pregnancy not specified
CPT/HCPCS: 59025; 59050; 99218; G0378

== ENCOUNTER 2021-08-22 09:04 | Inpatient (IN) | payer BC, SELFPAY ==
[2021-08-22] VITALS (72 sets, daily range): BP systolic 85–154; BP diastolic 53–106; PULSE 8–96; RESP 16; TEMP 36.2–37.1; O2SAT 83–100; BMI 33.0
[2021-08-22] MEDS: Lactated Ringers 500 ML 999 ML IV ×2 (09:05→09:58)
[2021-08-22] MEDS: Lactated Ringers 1,000 ML 200 ML IV (09:05)
[2021-08-22 09:18] LABS: Absolute Neutrophil Count 12.5 X10^3/uL (2.0-7.7); Basophil# 0.04 X10^3/uL; Basophil% 0.3 % (0-1); Eosinophil# 0.07 X10^3/uL; Eosinophils% 0.5 % (0-5); Hematocrit 38.3 % (37-47); Hemoglobin 12.9 g/dL (12.0-15.0); Lymphocyte % 8.1 % (19-41); Mean Corp Hgb Conc 33.7 g/dL (32-36); Mean Corpuscular Hgb 28.5 pg (27.0-32.0); Mean Corpuscular Volume 84.7 fL (81-99); Mean Platelet Vol. 11.5 fl (6.2-12.0); Monocyte# 0.77 X10^3/uL; Monocyte% 5.2 % (0-10); NRBC Flagged by Analyzer 0 % (0-5); Neutrophil % 84.7 % (47-70); Platelet Count 187 K/mm3 (150-450); RBC Distribution Width CV 13.8 % (11.6-14.6); RBC Distribution Width SD 43.1 fl (35.1-43.9); Red Blood Count 4.52 M/mm3 (4.2-5.4); White Blood Count 14.8 K/mm3 (4.4-11.0)
[2021-08-22] MEDS: fentaNYL-bupivacaine (epidural) 100 ML BAG EPIDURAL (10:01)
[2021-08-22] MEDS: Oxytocin 30 units/NS 500 ml 30 UNITS/500 ML IV.SOLN 334 UNITS IV (13:21)
--- NOTE | 2021-08-22 14:07 | HP.PCM.OB_ITS ---
HPI - General General Date of Admission: 08/22/21 HPI Narrative ISAIAH OLIVARES, is a 31 F who presents IAL 6-7 cm dilated intact no vb lof good fm regular ctx,. Maternal Data Information COLIN Calculator Estimated Delivery Date Method Current WG Current Estimate 08/20/21 LMP (Certain) 40w 3d Other Estimates 08/22/21 Ultrasound #1 40w 1d PFSH PFSH Medical History (Updated 08/23/21 @ 10:[address] Nicole Cueva MD) H/O abnormal cervical Papanicolaou smear depression Home Medications vit,[id number] 1 ea PO DAILY 11/11/19 [History Last Taken 08/21/21 20:00] Allergy/AdvReac Type Severity Reaction Status Date / Time No Known Allergies Allergy Verified 08/22/21 08:49 Family History Grandmother CVA (cerebral vascular accident) Lung cancer Surgical History H/O wisdom tooth extraction History of tonsillectomy and adenoidectomy Social History adopted: No household members: family housing: house number of children: 1 current occupational status: employed current occupation: [employer] pets and animals: Yes Smoking Status: Never smoker second hand exposure: Yes alcohol intake: current alcohol intake frequency: holidays/special occasions only substance use type: does not use seatbelt use: always do you feel safe at home: Yes additional social history: - Neno History 3 Elective abortions Hx Para 1 Spontaneous abortions 1 Hx # Term Pregnancies Ectopic pregnancies Hx # Pregnancies Multiple births # of living children 1 Past Pregnancies Del. Date Name GA/Weeks Outcome Route Bth Weight Infant Gen Labor Lgth Anesthesia Del Locatn Provider FOB 11/12/19 Mariya 40 live - full term 8lbs 6oz Female 14 hours epidural [facility] Nicolas Lazcano Delivery Date: 11/12/19 pushed for over 2hrs- head OA to EVARISTO. 1st degree- RT labia majoria; 2nd degree perineal Meaghan Layne Visit Details Expected Delivery Route/Plan Labor Preferences- CB/BF classes: no labor support person: Neno labor intervention preferences: [] pain management options preferred: epidural cut cord/dad catch: cord : yes PP control planned: discussed discussed possible routes of delivery and associated risks: [] special requests: [] Plans Covid status: non immune counseled regarding risk of covid in vs vaccination and declined vaccination Flu vaccine: declined Tdap vaccine: declines Rhogam: na LARC form signed: yes Problem list reviewed and updated with the most current plan of care details and appropriate orders placed. Relevant counseling for the gestational age provided. Continue routine care and follow up unless otherwise noted in visit notes/problem list details OB Flowsheet Initial Weight: 150 lb Date -?-?-?-?-?-?-?-?-?-?-?-?- EGA Weight BP Urine Prot -?-?-?-?-?-?-?-?-?-?-?-?- Glucose FHR FuHt Pres Dilation -?-?-?-?-?-?-?-?-?-?-?-?- Effaced St Visit Note 01/16/21 -?-?-?-?-?-?-?-?-?-?-?-?- 9w 1d 151 lb (+16 oz) 110/82 -?-?-?-?-?-?-?-?-?-?-?-?- 170 -?-?-?-?-?-?-?-?-?-?-?-?- Sm- CRL 2cm cons with LMP 02/13/21 -?-?-?-?-?-?-?-?-?-?-?-?- 13w 1d 155 lb (+5 lb) 122/80 Negative -?-?-?-?-?-?-?-?-?-?-?-?- Negative 167 -?-?-?-?-?-?-?-?-?-?-?-?- JV- no cramping or bleeding, no complaints. anatomy scan ordered for her to schedule at 20 weeks. questions answered. 03/11/21 -?-?-?-?-?-?-?-?-?-?-?-?- 16w 6d 158 lb 8 oz (+8 lb 8 oz) 116/66 Negative -?-?-?-?-?-?-?-?-?-?-?-?- Negative 163 -?-?-?-?-?-?-?-?-?-?-?-?- MH-No VB, LOF. MFM anatomy US 04/03. Denies concerns. 04/10/21 -?-?-?-?-?-?-?-?-?--?-?-?- 21w 1d 167 lb 4 oz (+17 lb 4 oz) 112/60 Negative -?-?-?-?-?-?-?-?-?-?-?-?- Negative 150 22 -?-?-?-?-?-?-?-?-?-?-?-?- SM- no vb lof go od fm no regular ctx 05/20/21 -?-?-?-?-?-?-?-?-?-?-?-?- 26w 6d 175 lb 4 oz (+25 lb 4 oz) 112/60 Negative -?-?-?-?-?-?-?-?-?-?-?-?- Negative 143 27 -?-?-?-?-?-?-?-?-?-?-?-?- -No Vb, LOF. G ood FM. 28wk labs. [facility]. 06/05/21 -?-?-?-?-?-?-?-?-?-?-?-?- 29w 1d 178 lb 6 oz (+28 lb 6 oz) 120/66 Negative -?-?-?-?-?-?-?-?-?-?-?-?- Negative 149 28 -?-?-?-?-?-?-?-?-?-?-?-?- JV- growth scan 67th% and placenta not low lying according to the preliminary report 06/19/21 -?-?-?-?-?-?-?-?-?-?-?-?- 31w 1d 184 lb 4 oz (+34 lb 4 oz) 126/70 Negative -?-?-?-?-?-?-?-?-?-?-?-?- Negative 148 30 Cephalic -?-?-?-?-?-?-?-?-?-?-?-?- MH-NO VB, LOF. G ood FM. Had issues with first chil d. Enc to call WP to see before delivery 07/03/21 -?-?-?-?-?-?-?-?-?-?-?-?- 33w 1d 189 lb (+39 lb) 120/60 Negative -?-?-?-?-?-?-?-?--?-?-?-?- Negative 143 32 -?-?-?-?-?-?-?-?-?-?-?-?- JV- pt complains of vaginal/vulva itching and dryness and wonders if could have a yeast infection. no lof, vaginal bleeding, or dec fm. on exam there is a raised erythematous and edematous rash like cluster of lesions. She denies h/o herpes. will test for herpes, vaginal culture also collected. 07/15/21 -?-?-?-?-?-?-?-?-?-?-?-?- 34w 6d 192 lb 2 oz (+42 lb 2 oz) 110/60 Negative -?-?-?-?-?-?-?-?-?-?-?-?- Negative 144 35 Cephalic -?-?-?-?-?-?-?-?-?-?-?-?- JV- no lof, vagi nal bleeding, or dec fm. used monistat and feeling better. plan for bedside scan to confirm presentation next visit. 07/25/21 -?-?-?-?-?-?-?-?-?-?-?-?- 36w 2d 190 lb (+40 lb) 110/62 Negative -?-?-?-?-?-?-?-?-?-?-?-?- Negative 145 37 Cephalic -?-?-?-?-?-?-?-?-?-?-?-?- SM- no vb lof go od fm no regular ctx- patient declined pelvic exam today due to GI illness last night, will do gbs next week 08/01/21 -?-?-?-?-?-?-?-?-?-?--?-?- 37w 2d 195 lb (+45 lb) 112/80 Negative -?-?-?-?-?-?-?-?-?-?-?-?- Negative 160 37 Cephalic 2 -?-?-?-?-?-?-?-?-?-?-?-?- 30 JV- no l of, vaginal bleeding or dec fm. some BH contractions, GBS today. 08/08/21 -?-?-?-?-?-?-?-?-?-?-?-?- 38w 2d 198 lb 2 oz (+48 lb 2 oz) 104/78 Negative -?-?-?-?-?-?-?-?-?-?-?-?- Negative 145 37 Cephalic 3 -?-?-?-?-?-?-?-?-?-?-?-?- 50 -3 JV- no lof , vaginal bleeding, or dec fm. gbs was lost but recollected. 08/14/21 -?-?-?-?-?-?-?-?-?-?-?-?- 39w 1d 198 lb 8 oz (+48 lb 8 oz) 114/70 Negative -?-?-?-?-?-?-?-?-?-?-?-?- Negative 140 38 Cephalic 3 -?-?-?-?-?-?-?-?-?-?-?-?- 70 -2 [facility]- [facility] bulging and labor precautions discussed 08/21/21 -?-?-?-?-?-?-?-?-?-?-?--?- 40w 1d 205 lb 4 oz (+55 lb 4 oz) 120/82 Negative -?-?-?-?-?-?-?-?-?-?-?-?- Negative 130 40 Cephalic 4 -?-?-?-?-?-?-?-?-?--?-?-?- 70 -2 J- [facility]. IOL set up for wednesday if no labor 08/22/21 -?-?-?-?-?-?-?-?-?-?-?-?- 40w 2d 205 lb 0.478 oz (+55 lb 0.478 oz) 127/73 127/68 141/106 154/91 85/53 108/62 113/56 117/56 109/60 107/59 117/60 114/55 109/58 136/61 103/56 153/67 125/56 107/61 122/69 126/72 122/67 -?-?-?-?-?-?-?-?-?-?-?-?- -?-?-?-?-?-?-?-?-?-?-?-?- NST FHR Rate Baby A Baseline: 140 Variability:: Moderate Accelerations:: 15 x 15 Decelerations:: None NST Reactive:: Yes FHR Category:: Category I Uterine Activity:: q3-5 ROS Constitutional Constitutional: Reports systems reviewed and no addt'l complaints, except as documented ENT HEENT: Reports systems reviewed and no addt'l complaints, except as documented Cardiovascular Cardiovascular: Reports systems reviewed and no addt'l complaints, except as documented Respiratory/Chest Respiratory/Chest: Reports systems reviewed and no addt'l complaints, except as documented Gastrointestinal Gastrointestinal: Reports systems reviewed and no addt'l complaints, except as documented and nausea; Denies abdominal pain Genitourinary Genitourinary: Reports systems reviewed and no addt'l complaints, except as documented, contractions Details: present and frequency (regular ) and movement Details: present Musculoskeletal Musculoskeletal: Reports systems reviewed and no addt'l complaints, except as documented Integumentary Integumentary: Reports as per HPI Neurologic Neurologic: Reports systems reviewed and no addt'l complaints, except as documented Endocrine Endocrinology: Reports systems reviewed and no addt'l complaints, except as documented Vital Signs Vital Signs Vital Signs: 08/22/21 08:40 08/22/21 08:41 08/22/21 09:29 Temperature 98.1 F Temperature Source Temporal Pulse Rate 80 8 L 86 Blood Pressure 127/73 H BP Systolic 127 BP Diastolic 73 Pulse Ox 83 100 08/22/21 09:34 08/22/21 09:35 08/22/21 09:40 Temperature Temperature Source Pulse Rate 90 87 93 Blood Pressure 127/68 H 141/106 H BP Systolic 127 141 BP Diastolic 68 106 Pulse Ox 100 08/22/21 09:42 08/22/21 09:45 08/22/21 09:47 Temperature Temperature Source Pulse Rate 96 86 96 Blood Pressure 154/91 H BP Systolic 154 BP Diastolic 91 Pulse Ox 99 100 08/22/21 09:52 08/22/21 09:55 08/22/21 09:57 Temperature Temperature Source Pulse Rate 66 74 80 Blood Pressure 85/53 L BP Systolic 85 BP Diastolic 53 Pulse Ox 99 97 08/22/21 10:00 08/22/21 10:02 08/22/21 10:06 Temperature Temperature Source Temporal Pulse Rate 86 87 85 Blood Pressure 108/62 113/56 L BP Systolic 108 113 BP Diastolic 62 56 Pulse Ox 100 08/22/21 10:07 08/22/21 10:09 08/22/21 10:12 Temperature Temperature Source Pulse Rate 86 82 84 Blood Pressure 117/56 L BP Systolic 117 BP Diastolic 56 Pulse Ox 98 100 08/22/21 10:15 08/22/21 10:17 08/22/21 10:20 Temperature Temperature Source Pulse Rate 85 84 81 Blood Pressure 109/60 107/59 L BP Systolic 109 107 BP Diastolic 60 59 Pulse Ox 99 08/22/21 10:22 08/22/21 10:26 08/22/21 10:27 Temperature Temperature Source Pulse Rate 82 85 80 Blood Pressure 117/60 BP Systolic 117 BP Diastolic 60 Pulse Ox 100 99 08/22/21 10:32 08/22/21 10:37 08/22/21 10:42 Temperature Temperature Source Pulse Rate 85 80 79 Blood Pressure BP Systolic BP Diastolic Pulse Ox 99 100 99 08/22/21 10:47 08/22/21 10:52 08/22/21 10:57 Temperature Temperature Source Pulse Rate 83 79 78 Blood Pressure BP Systolic BP Diastolic Pulse Ox 100 99 99 08/22/21 10:59 08/22/21 11:02 08/22/21 11:07 Temperature Temperature Source Pulse Rate 83 84 80 Blood Pressure 114/55 L BP Systolic 114 BP Diastolic 55 Pulse Ox 100 100 08/22/21 11:13 08/22/21 11:18 08/22/21 11:23 Temperature 97.6 F L Temperature Source Pulse Rate 85 88 85 Blood Pressure BP Systolic BP Diastolic Pulse Ox 100 100 100 08/22/21 11:48 08/22/21 12:19 08/22/21 13:11 Temperature 97.2 F L 97.6 F L Temperature Source Temporal Temporal Pulse Rate 82 Blood Pressure 109/58 L BP Systolic 109 BP Diastolic 58 Pulse Ox 08/22/21 13:28 08/22/21 13:31 08/22/21 13:36 Temperature 98.8 F Temperature Source Temporal Pulse Rate 87 89 90 Blood Pressure 136/61 H BP Systolic 136 BP Diastolic 61 Pulse Ox 99 100 08/22/21 13:41 08/22/21 13:43 08/22/21 13:46 Temperature Temperature Source Pulse Rate 84 84 84 Blood Pressure 103/56 L BP Systolic 103 BP Diastolic 56 Pulse Ox 100 98 08/22/21 13:51 08/22/21 13:53 08/22/21 13:56 Temperature 98.6 F Temperature Source Temporal Pulse Rate 85 85 Blood Pressure BP Systolic BP Diastolic Pulse Ox 99 100 08/22/21 13:58 08/22/21 14:01 08/22/21 14:06 Temperature Temperature Source Pulse Rate 82 85 81 Blood Pressure 153/67 H BP Systolic 153 BP Diastolic 67 Pulse Ox 99 99 Weight Weight: 205 lb 0.478 oz Body Mass Index (BMI) 33.0 Physical Exam Const alert, oriented x3 and healthy appearing Constitutional Narrative: uncomfortable with contractions HEENT normocephalic and moist oral mucous membranes Head and Scalp: atraumatic Neck full ROM, no lymphadenopathy, supple and thyroid normal General: trachea midline Thyroid: thyroid normal Lymph Lymphatic: no lymphadenopathy noted Chest inspection of chest normal Resp normal respiratory effort Cardio regular rate GI normal to inspection, nondistended, normoactive bowel sounds, soft to palpation and non-tender Inspection: gravid external exam normal Bimanual Exam - Vag & Uterus: uterus non-tender Manual OB Exam: estimated gestational size appropriate, presentation cephalic, dilated, effaced and station Extremity normal to inspection General Extremity: Negative for edema Skin no rashes or lesions noted Neuro deep tendon reflexes 2+ bilaterally Motor Exam: strength 5/5 throughout and clonus absent Psych mental status grossly normal Labs Labs Labs: Blood Type A POSITIVE Antibody Screen NEGATIVE Hct 38.3 % (37-47) Hgb 12.9 g/dL (12.0-15.0) Obstetrics US Syphilis Total Ab Non-reactive Rubella IgG Antibody Reactive (Nonreactive) Hep Bs Antigen Non-Reactive (Nonreactive) Chlamydia DNA (CRISTO) Negative (Negative) Neisseria gonorrhoeae DNA (CRISTO) Negative (Negative) HIV 1&2 Antibody Non-Reactive (Nonreactive) Glucose 1 Hr 50 gm 92 mg/dL (70-140) Rhogam given: No Assessment & Plan (1) : QUALIFIERS: Weeks of gestation: 40 weeks Qualified Code(s): Z3A.40 - 40 weeks gestation of COMMENT: declines genetic and carrier. GBS neg (2) Supervision of other normal : COMMENT: PRR COLIN: 08/20/21 boy PC: Mariya Spouse: Neno (3) Low lying placenta, antepartum: COMMENT: Resolved (4) History of depression, currently : COMMENT: No med after first but wishes she did. Wants to consider med start at 36wk. Sooner if sx occur (5) Active labor at term: PLAN: Patient presents IAL, plan expectant management for , pitocin/AROM PRN if needed. Pain management: plans epidural. GBS neg. Management of any complications: none I have reviewed the [facility] and made any clinically relevant updates.
--- NOTE | 2021-08-22 14:08 | EX.PCM.OBRPT ---
Assessment & Plan (1) Active labor at term: (2) : QUALIFIERS: Weeks of gestation: 40 weeks Qualified Code(s): Z3A.40 - 40 weeks gestation of COMMENT: declines genetic and carrier. GBS neg (3) Supervision of other normal : COMMENT: PRR COLIN: 08/20/21 boy PC: Mariya Spouse: Neno (4) Vaginal delivery: COMMENT: SM boy Odell 40 IAL Maternal Data Information COLIN Calculator Estimated Delivery Date Method Current WG Current Estimate 08/20/21 LMP (Certain) 40w 3d Other Estimates 08/22/21 Ultrasound #1 40w 1d Vaginal Delivery Operative Information Date of Procedure: 08/22/21 Pre-Operative Diagnosis: IAL Post-Operative Diagnosis: same Surgery / Procedure Performed: Spontaneous Vaginal Delivery Type of Anesthesia: Epidural Special Medications: none Estimated Blood Loss: 200 Fluids Replaced: crystalloid Findings Description of Procedure: Patient began pushing and delivered the head in the RELL presentation. The head was delivered atraumatically . The anterior and posterior shoulders delivered without complication followed by the rest of the and the infant was placed on the maternal abdomen. Delayed cord clamping was employed for approximately 60 seconds. Cord was clamped and cut and gentle traction was applied to the cord and the placenta delivered spontaneously immediately following it was noted to be intact with three-vessel cord. The perineum and vagina were inspected and noted to have no laceration. EBL was 200. Patient and infant tolerated delivery well. Presentation: RELL Amniotic Membrane Rupture Type: Artificial Amniotic Fluid Description: Clear Placental Delivery Description: Spontaneous Placenta Disposition: [facility] Cord Vessel Description: 3 Vessels Cord Entanglement: None Delayed Cord Clamping: Yes Post Vaginal Delivery Medications Given After Delivery: IV Pitocin Episiotomy Description: None Laceration: None Complication Complications: None Procedures Urinary/Genital 52xxx-59xxx: [id number] Vaginal Delivery global pk
[2021-08-22] MEDS: Methylergonovine 0.2 MG/ML Ampul IM (15:14)
--- NOTE | 2021-08-22 15:55 | NURSING ---
Bedside report given to Simon Mckinney RN who will assume care of the patient at this time.
[2021-08-22] MEDS: Naproxen 500 MG Tablet PO (20:32)
[2021-08-23 00:03] VITALS: BP 106/52; PULSE 77; RESP 18; TEMP 36.1
[2021-08-23 05:21] VITALS: BP 111/37; PULSE 66; RESP 18
[2021-08-23 07:43] VITALS: BP 109/47; PULSE 71; RESP 16; TEMP 36.4; O2SAT 97
--- NOTE | 2021-08-23 10:42 | PCM.DC ---
Discharge Instructions Diet Discharge Diet: No restrictions Activity Discharge Activity: Return to Normal Activity, May Not Drive (while taking narcotic pain medications.) and May Shower May resume sexual activity in: 4-6 weeks Dressing / Incision Call your doctor if your incision/area has: Continuous Slow Oozing, Sudden Increased Bleeding, Increased Pain/ Swelling, Increased Redness and Foul Smelling Discharge Follow Up Care Please Follow Up With: Nicole Cueva MD When: Call [phone] to make an appointment with your doctor in 6 weeks. If you had elevated blood pressure or 4th degree laceration, you will need to be seen in 2 weeks. Test Results: Test results from this visit will be discussed in further detail at your follow-up appointment, if applicable. Discharge Plan Admission Admit Date/Time: 08/22/21 09:04 Attending Provider: Nicole Cueva Discharge Orders/Prescriptions Prescriptions: No Action vit,[id number] 1 EACH tablet 1 ea PO DAILY RF: 0 Disposition Disposition (needs filled in before D/C Order can be placed): Home, Self Care
--- NOTE | 2021-08-23 10:43 | PCM.PN.OB ---
Subjective Subjective Patient doing well without complaints. Tolerating PO. Ambulating and voiding without difficulty. feeding well. Denies chest pain, shortness of breath, calf pain/swelling, fevers, chills, lightheadedness. Objective Data Objective Data Vital Signs: Vital Signs Temp Pulse Resp BP Pulse Ox 97.6 F L 71 16 109/47 L 97 08/23/21 07:43 08/23/21 07:43 08/23/21 07:43 08/23/21 07:43 08/23/21 07:43 Oxygen Delivery Method Room Air Weight: 205 lb 0.478 oz Body Mass Index (BMI) 33.0 Intake & Output: Intake and Output for Last 24 Hours 08/21/21 08/22/21 08/23/21 23:59 23:59 23:59 Intake Total 2346.67 / 2346.67 Output Total 700 / 700 Balance 1646.67 / 1646.67 Lab / Micro Data Result Diagrams: 08/22/21 09:05 Micro: Microbiology 08/22/21 09:20 Nasal Secretion SARS-CoV-2 Antigen (Rapid) - Final ROS Constitutional Constitutional: Reports systems reviewed and no addt'l complaints, except as documented Cardiovascular Cardiovascular: Reports systems reviewed and no addt'l complaints, except as documented Respiratory/Chest Respiratory/Chest: Reports systems reviewed and no addt'l complaints, except as documented Gastrointestinal Gastrointestinal: Reports systems reviewed and no addt'l complaints, except as documented Physical Exam Const alert, oriented x3 and no apparent distress HEENT Head and Scalp: atraumatic Resp normal respiratory effort GI soft to palpation and non-tender Bimanual Exam - Vag & Uterus: uterus non-tender Uterus Palpation: uterus fundus firm (below Umbilicus) Assessment & Plan (1) Vaginal delivery: COMMENT: SM boy Odell 40 IAL PLAN: s/p PPD # 1 1. routine post delivery care 2. breast feeding- support given 3. rh positive 4. rubella immune
--- NOTE | 2021-08-23 13:05 | CASEMGMT ---
SONIA Note: Referral Reason: History of Post Depression Referral Source: Fuel Buyer Mom: Susan Patient and fob were in the room with the nb when this speech writer and bilingual social worker Shilo walked into the room. FOB was taking pictures of patient and nb. Patient gave this speech writer verbal consent to speak to her in the presence of the fob. PNC: [place] Control: Condoms Baby: Jose R, male : 08/22/[birth year] Apgars: 9/9 Weight: 8#10 ounces Fuel Buyer: [facility] other children: Mariya, 1 year old Housing: Patient resides in a house with her /FOB and their 2 children Transportation: Patient reports access to transportation Supplies: Patient reports that she has all nb supplies including carseat, bassinet, and crib. Supports: Patient said that her supports are her and her mother, who resides 2 doors down. Education Level: Patient graduated high school and college with a bachelors degree in sociology. No learning issues or delays. Employment/ Financial: Patient is employed at [employer] and enjoys her job. Patient plans to take 4 weeks off work. Patient said that while she is working her mother and the fob's mother will watch the nb, as they watch their older child. Agency Involvement: NO JFS, WIC, HMG, Counseling, and CSB issues. FOB: Neno Time Together: 11 years Involved with the nb: Yes Employed: FOB works registered phlebotomist part time or an engineering firm and works from home. Other children: FOB is father to patient's daughter, Mariya QIU MH/AOD/Domestic Violence: FOB denied Maternal MH History: Patient reports that following the of her daughter she had post depression. Patient's said that PPD looked like patient was sad and lacking energy. Patient said that she did not follow up with her post appointment at 6 weeks due to her PPD. SW discussed post and medication. Patient said that she is more open to medication than she had been with baby #1. SW educated patient and FOB that medication may be short term but will help patient enjoy the post period. FOB said that he and patient talk about emotional issues and support each other. Patient denied any SI/HI. SW educated patient and FOB about the ED emergency room staff and how if she is in crisis she can always speak to the social workers in the ED. Patient was educated on PPD, Shaken Baby, and Safe sleeping Patient reports no alcohol use during . Patient reports no drug use. Patient confirmed alcohol use on special occasions. Patient denied tobacco use. Patient was smiling and interacting with the nb. Patient was reactive and repeatedly commented and smiled when talking about the nb. Patient was holding the nb during the assessment and appeared to be enjoying the interaction. Patient appeared to be appropriately bonding with the nb. FOB also provided support to the patient and nb during the assessment. SW spoke to GLORIA Soria. She reports no concerns regarding the nb. SONIA updated Estella that patient had reported PPD in the past with first child and is more open to medication. Estella said that patient has appointment with Nandini at [place] on Wednesday08/26/21 Plan: Home at discharge Susan KITCHEN
[2021-08-23 14:10] VITALS: BP 116/68; PULSE 78; RESP 18; TEMP 36.6; O2SAT 99
== END 2021-08-23 14:17 | disposition home or self-care (01) | DRG 807 ==
LOC: WPOUT 09:05 → WP 09:05
PROVIDERS: Admitting Provider Obstetrics & Gynecology; Referring Provider Obstetrics & Gynecology; Visit Provider Obstetrics & Gynecology
DX: O80 Encounter for full-term uncomplicated delivery (principal); Z37.0 Single live birth; Z3A.40 40 weeks gestation of pregnancy
CPT/HCPCS: 59025; 59050; 85025; 86850; 86900; 86901; 87426; 99218; J7120; G0378; J3490

== ENCOUNTER → 2021-10-07 | Outpatient (CLI) | payer BC, SELFPAY | END | disposition home or self-care (01) | PROVIDERS: Visit Provider Obstetrics & Gynecology | DX: L30.9 Dermatitis, unspecified (principal) | CPT/HCPCS: 87070; 87077; 87186; 87205 ==

== ENCOUNTER → 2022-11-18 | Outpatient (CLI) | payer BC, SELFPAY ==
[2022-11-21 14:12] LABS: HPV APTIMA, High Risk Negative (Negative)
== END | disposition home or self-care (01) ==
LOC: LABSPEC 10:41
PROVIDERS: Referring Provider Registered Nurse; Visit Provider Registered Nurse
DX: Z12.4 Encounter for screening for malignant neoplasm of cervix (principal)
CPT/HCPCS: 87624; 88175; G0145